=== PATIENT | female | born 1980 | race Caucasian/White ===

== ENCOUNTER 2022-02-28 20:15 | Emergency (ER) | payer SELFPAY ==
[~2022-02-28] VITALS: Ht 157.5 cm; Wt 104.3 kg
[2022-02-28] MEDS ORDERED: IBUP-1955 PO (21:55)
[2022-02-28] MEDS ORDERED: IBUPROFEN 600 MG TABLET PO ONE (22:00)
[2022-02-28] MEDS ORDERED: IBUPROFEN 600 MG TABLET ONE (22:11)
--- NOTE | 2022-02-28 22:24 | NUR ---
Patient discharged to home in stable condition. Written and verbal after care instructions given. Patient verbalizes understanding of instruction.
[2022-02-28 22:25] VITALS: BP 134/70
== END 2022-02-28 22:25 | disposition home or self-care (01) ==
LOC: ER 20:29
DX: M62.830 Muscle spasm of back (principal); M25.511 Pain in right shoulder; V32.6XXA Passenger in three-wheeled motor vehicle injured in collision with two- or three-wheeled motor vehicle in traffic accident, initial encounter; Y93.89 Activity, other specified; Y92.413 State road as the place of occurrence of the external cause; Y99.8 Other external cause status
CPT/HCPCS: 72050-TC; 73030-TC